=== PATIENT | female | born 1975 | race Caucasian/White ===

== ENCOUNTER 2018-07-11 13:11 | Outpatient (CLI) | payer OTHER ==
--- NOTE | 2018-07-11 13:39 | RAD ---
Exam: 3 views sacrum and coccyx HISTORY: Buttock pain, x5 months FINDINGS: Incidental intrauterine device is noted Comparison joints are patent and symmetric Visualized bony pelvis is intact Sacral alar are preserved IMPRESSION: no acute abnormality with regards to the sacrum and coccyx.
== END 2018-07-11 13:12 | disposition home or self-care (01) ==
LOC: SCSRAD 13:11
PROVIDERS: ATTEND Specialist
DX: M53.3 Sacrococcygeal disorders, not elsewhere classified (principal)
CPT/HCPCS: 72220

== ENCOUNTER 2018-08-22 11:25 | Outpatient (CLI) | payer OTHER ==
--- NOTE | 2018-08-22 14:09 | MRI ---
MRI PELVIS WITHOUT CONTRAST: HISTORY: R10.2, pelvic pain. COMPARISON: Sacrum and coccyx radiographs from 07/11/2018. FINDINGS: Bones: No fracture. No malalignment. No contusion. The marrow signal of the coccyx is maintained. No stress edema. Muscles: Muscle signal and bulk are normal. No quadratus femoris edema. Tendons: The iliopsoas tendons are intact. The common hamstring and semimembranosus tendons are int act. The rectus femoris tendons are intact. Intrapelvic soft tissues: Normal. Lower lumbar spine is unremarkable. IMPRESSION: Normal examination of the pelvis. POS: CET
== END 2018-08-22 11:26 | disposition home or self-care (01) ==
LOC: SCSMRI 11:25
PROVIDERS: ATTEND Specialist
DX: R10.2 Pelvic and perineal pain (principal)
CPT/HCPCS: 72195